=== PATIENT | female | born 1955 | race Caucasian/White ===

== ENCOUNTER 2021-06-21 12:28 | Emergency (ER) | payer MEDICARE, OTHER ==
--- NOTE | 2021-06-21 13:46 | EDM.PDOC ---
ED HPI GENERAL MEDICAL PROBLEM - General Chief Complaint: Chest Pain Stated Complaint: POSSIBLE HEART ATTACK Time Seen by Provider: 06/21/21 13:00 Source of Information: Reports: Patient, RN Notes Reviewed History Limitations: Reports: No Limitations - History of Present Illness INITIAL COMMENTS - FREE TEXT/NARRATIVE: This patient presents to the emergency department for evaluation of chest pain. She states she was coming down the steps at home when she had a sudden onset of sharp pain just under her left breast at the center of her chest. She states she laid down and it did seem some better. She then contacted the clinic and asked to get an appointment scheduled and was told "you are having a heart attack, go to the ER." She presented with quite anxious and concerned that she had a heart attack. In getting further history she notes that she was out walking with her approximately 2 weeks ago when she has similar onset of such pain, in the same place. At that time it took about 30 minutes for the pain to completely go away. Today she is completely pain-free on arrival to the emergency department. With these episodes she did not have any difficulty breathing, any diaphoresis or any nausea. She denies any recent illnesses including fevers and coughs. She is quite anxious on arrival today. Chest Pain Score (Numeric/FACES): 0 - Related Data Allergies Allergy/AdvReac Type Severity Reaction Status Date / Time No Known Allergies Allergy Verified 06/21/21 12:58 Home Meds: Home Meds Anastrozole [Arimidex] 1 mg PO QID 06/21/21 [History] Calcium Carbonate/Vitamin D3 [Caltrate 600 + D Soft Chew Tab] 06/21/21 [History] Escitalopram [Lexapro] 10 mg PO QID 06/21/21 [History] Lisinopril/Hydrochlorothiazide [Lisinopril-Hctz 20-12.5 mg Tab] 20 mg PO QID 06/21/21 [History] Lutein/Zeaxanthin [Ocuvite Lutein 25-5 mg Softgel] 1 PO 06/21/21 [History] Vitamin E 180 mg PO QID 06/21/21 [History] atorvaSTATin [Lipitor] 40 mg PO QID 06/21/21 [History] Past Medical History HEENT History: Reports: Impaired Vision Cardiovascular History: Reports: High Cholesterol, Hypertension Endocrine/Metabolic History: Reports: Vitamin D Deficiency Oncologic (Cancer) History: Reports: Breast - Past Surgical History Cardiovascular Surgical History: Reports: None Social & Family History - Family History Family Medical History: No Pertinent Family History - Tobacco Use Tobacco Use Status *Q: Never Tobacco User ED ROS GENERAL - Review of Systems Review Of Systems: See Below Constitutional: Denies: Fever, Chills, Weakness, Fatigue HEENT: Reports: No Symptoms Respiratory: Denies: Shortness of Breath, Cough Cardiovascular: Reports: Chest Pain. Denies: Palpitations GI/Abdominal: Reports: No Symptoms Musculoskeletal: Reports: No Symptoms Skin: Reports: No Symptoms Neurological: Reports: No Symptoms Psychiatric: Reports: Anxiety ED EXAM, GENERAL - Physical Exam Exam: See Below Exam Limited By: No Limitations General Appearance: Alert, No Apparent Distress, Anxious Eye Exam: Bilateral Eye: Normal Inspection, PERRL Ears: Normal External Exam Nose: Normal Inspection Throat/Mouth: Normal Inspection Head: Atraumatic, Normocephalic Neck: Normal Inspection, Supple, Non-Tender, Full Range of Motion Respiratory/Chest: No Respiratory Distress, Lungs Clear, Normal Breath Sounds, No Accessory Muscle Use Cardiovascular: Normal Peripheral Pulses, Regular Rate, Rhythm Extremities: Normal Inspection, No Pedal Edema Neurological: Alert, Oriented Psychiatric: Normal Affect #1 Interpretation Rhythm: NSR Comparison: NA - No Prior EKG Course - Vital Signs Last Recorded V/S: Last Vital Signs Temp Pulse 70 06/21/21 12:56 Resp 16 06/21/21 12:56 BP 160/88 H 06/21/21 12:56 Pulse Ox 97 06/21/21 12:56 - Orders/Labs/Meds Orders: Active Orders 24 hr Category Date Time Status Chest 1V Frontal [CR] Stat Exams 06/21/21 12:45 Taken Labs: Laboratory Tests 06/21/21 06/21/21 06/21/21 Range/Units 13:00 13:00 13:00 WBC 6.0 (4.0-11.0) K/uL RBC 4.17 (3.80-5.80) M/uL Hgb 12.6 (11.5-16.5) g/dL Hct 38.2 (37.0-47.0) % MCV 92 (76-96) fL MCH 30.2 (27.0-32.0) pg MCHC 33.0 (31.0-35.0) g/dL RDW 12.5 (11.0-16.0) % Plt Count 220 (150-500) K/uL MPV 9.1 (6.0-10.0) fL Neut % (Auto) 67.9 (45.0-70.0) % Lymph % (Auto) 23.9 (20.0-40.0) % [place] % (Auto) 7.0 (3.0-10.0) % Eos % (Auto) 1.0 (1.0-5.0) % Baso % (Auto) 0.2 (0.0-0.5) % Neut # (Auto) 4.07 (2.00-7.50) K/uL Lymph # (Auto) 1.43 L (1.50-4.00) K/uL [place] # (Auto) 0.42 (0.20-0.80) K/uL Eos # (Auto) 0.06 (0.04-0.40) K/uL Baso # (Auto) 0.01 L (0.02-0.10) K/uL Sodium 138 (136-145) mmol/L Potassium 4.3 (3.5-5.1) mmol/L Chloride 105 (98-107) mmol/L Carbon Dioxide 29.1 (21.0-32.0) mmol/L Anion Gap 8.2 (5.0-15.0) mmol/L BUN 20 (8-26) mg/dL Creatinine 0.67 (0.55-1.02) mg/dL Est Cr Clr Drug Dosing 85.15 mL/min Estimated GFR (MDRD) > 60 (>60) MLS/MIN BUN/Creatinine Ratio 29.9 H (6-25) Glucose 99 (74-100) mg/dL Calcium 9.9 (8.5-10.1) mg/dL Troponin I < 0.017 (0.000-0.060) ng/mL - Re-Assessments/Exams Free Text/Narrative Re-Assessment/Exam: 06/21/21 16:21 This patient presents to the emergency department with an episode of chest pain this morning. She had a similar episode of this a couple of weeks ago and did not seek care at that time. Today she presents pain-free and had a negative work-up in the emergency department. There is no clinical, laboratory, or radiographic evidence of pulmonary embolism, aortic dissection, pneumonia, pneumothorax or cardiac ischemia. Other etiologies of chest pain could include chest wall pain, esophageal spasm or GI source. I have no suspicion of unstable angina at this point and would therefore not admit nor administer any other medications. The patient is scheduled to have a stress test in this facility next June 27. She was instructed to return immediately should she have another episode of pain at home. Patient's questions were answered and she was stable at the time of discharge. 06/21/21 16:23 Departure - Departure Time of Disposition: 14:00 Disposition: Home, Self-Care 01 Condition: Good Clinical Impression: Chest pain in adult Instructions: Exercise Stress Test, [id number], Heart-Healthy Eating Plan, [id number], Nonspecific Chest Pain, Adult, [id number] Referrals: PCP,None [Primary Care Provider] - Forms: ED Department Discharge Additional Instructions: You will get a call from the hospital about your stress test. If you have another episode, come to the ED immediately. Sepsis Event Note (ED) - Focused Exam Vital Signs: Vital Signs Pulse Resp BP Pulse Ox 06/21/21 12:56 70 16 160/88 H 97 - My Orders Last 24 Hours: My Active Orders 06/21/21 12:45 Chest 1V Frontal [CR] Stat - Assessment/Plan Last 24 Hours: My Active Orders 06/21/21 12:45 Chest 1V Frontal [CR] Stat
--- NOTE | 2021-06-22 08:58 | CR ---
DATE OF SERVICE: 06/21/21 CLINICAL DATA: chest pain AP CHEST: No priors. The heart size is normal. The lungs are clear. No pneumothorax. No pleural effusions. No evidence of acute intrathoracic disease. [id number] [facility]
== END 2021-06-21 13:32 | disposition home or self-care (01) ==
LOC: LB.ED 12:28
DX: R07.9 Chest pain, unspecified (principal); E78.00 Pure hypercholesterolemia, unspecified; I10 Essential (primary) hypertension; Z79.899 Other long term (current) drug therapy
CPT/HCPCS: 36415; 71045; 80048; 84484; 85025; 93005; 99285-25